=== PATIENT | female | born 1975 | race Caucasian/White ===

== ENCOUNTER 2016-10-09 07:13 | Day surgery (SDC) | payer BC, OTHER ==
[~2016-10-09] VITALS: Ht 165.1 cm; Wt 97.7 kg
[2016-10-09 07:51] VITALS: BP 136/100
[2016-10-09 09:06] LABS: METH RESISTANT S AUREUS PCR NEGATIVE (NEGATIVE)
[2016-10-09 09:10] LABS: PROBE CHECK PASS; SPECIMEN PROCESSING CONTROL PASS
[2016-10-09] MEDS ORDERED: PERCOCET 5/31 TABLET PO (10:08)
[2016-10-09 12:25] VITALS: BP 122/67
[2016-10-09 13:58] VITALS: BP 116/56
== END 2016-10-09 14:00 | disposition home or self-care (01) ==
LOC: SDC 07:13
PROVIDERS: Surgery
PROC: 06BY3ZC Excision of Hemorrhoidal Plexus, Percutaneous Approach (ICD-10-PCS; principal; 2016-10-09)
DX: K64.8 Other hemorrhoids (principal); K64.4 Residual hemorrhoidal skin tags
CPT/HCPCS: 87641; 88304; J0131; J0330; J1100; J1170; J1580; J2175; J2405; J2550; J2765; J3010; S0030

== ENCOUNTER 2016-10-12 18:58 | Observation (INO) | payer BC, OTHER ==
[~2016-10-12] VITALS: Ht 167.6 cm; Wt 90.6 kg
[~2016-10-12 18:58] MED LIST: PERCOCET 5/31 TABLET PO
[2016-10-12 19:47] LABS: BASOPHIL COUNT 0.1 K/uL (0-0.1); EOSINOPHIL (%) 3.2 % (0-5); EOSINOPHIL COUNT 0.5 K/uL (0-0.3); HEMATOCRIT 37.7 % (36.0-46.0); IMMATURE GRANULOCYTE (%) 0.5 % (0.0-0.7); IMMATURE GRANULOCYTE COUNT 0.8 K/uL; LYMPHOCYTE COUNT 2.8 K/uL (1.0-2.8); MCH 30.2 PG (29.0-34.0); MCHC 35.5 G/DL (30.0-36.0); MONOCYTE (%) 7.9 % (3-12); MONOCYTE COUNT 1.3 K/uL (0-0.8); NEUTROPHIL (%) 70.3 % (45-76); NEUTROPHIL COUNT 11.3 K/uL (1.8-6.4); PLATELET COUNT 333 K/uL (156-360); RBC DIS.WIDTH-CV 13.7 % (11.8-14.6); RBC DIS.WIDTH-SD 41.4 % (39-53); RED BLOOD COUNT 4.43 M/uL (3.80-5.20)
[2016-10-12 19:52] LABS: MCV 85.1 FL (83-99)
[2016-10-12 19:59] LABS: CHLORIDE 106 mEq/L (99-109); POTASSIUM 3.9 mEq/L (3.7-5.4); SODIUM 137 mEq/L (136-147)
[2016-10-12 20:01] LABS: GLUCOSE 102 mg/dL (70-99)
[2016-10-12 20:02] LABS: ANION GAP 12 MEQ/L (2-14)
[2016-10-12 20:03] LABS: TOTAL BILIRUBIN 0.4 mg/dL (0.0-1.0)
[2016-10-12 20:05] LABS: ALKALINE PHOSPHATASE 59 IU/L (3-129); GFR ESTIMATE (CALCULATED) > 59 mL/min/
[2016-10-12 20:06] LABS: UREA NITROGEN (BUN) 10 mg/dL (9-23)
[2016-10-12 20:15] LABS: QUANTITATIVE HCG < 4.0 MIU/ML
[2016-10-12 21:36] LABS: ADD MIUA? YES; BILIRUBIN NEGATIVE; BLOOD NEGATIVE; COLOR YELLOW ((YELLOW)); GLUCOSE (STRIP) NEGATIVE; KETONES NEGATIVE; LEUKOCYTES NEGATIVE; NITRITE NEGATIVE; PH, URINE 7.5 (5-8); PROTEIN (STRIP) NEGATIVE; SPECIFIC GRAVITY 1.014 (1.000-1.030); UROBILINOGEN 0.2 MG/DL (0.2-1.0)
[2016-10-12 21:50] LABS: BACTERIA 1+; CASTS NONE SEEN /LPF; CRYSTALS NONE SEEN; EPITHELIAL CELLS 2+; MUCUS NONE SEEN; PATHOLOGICAL CAST NONE SEEN; RED BLOOD CELLS 0-5 /HPF (0-5); SMALL ROUND CELL NONE SEEN; WHITE BLOOD CELLS 0-5 /HPF (0-5); YEAST-LIKE CELL NONE SEEN
[2016-10-12] MEDS ORDERED: TYLENOL EXTRA500 MG PO (22:25)
[2016-10-12 23:50] VITALS: BP 121/65
[2016-10-13] MEDS ORDERED: MOTRIN600 MG PO (04:27)
[2016-10-13] MEDS ORDERED: ANECREAM30 GM TP (04:27)
[2016-10-13 05:06] VITALS: BP 122/71
[2016-10-13 07:15] VITALS: BP 110/66
[2016-10-13 07:15] LABS: HEMATOCRIT 36.2 % (36.0-46.0); MCHC 34.3 G/DL (30.0-36.0); MCV 87.7 FL (83-99); MEAN PLAT.VOLUME 10.5 uM^3 (9.5-12.4); PLATELET COUNT 255 K/uL (156-360); RBC DIS.WIDTH-CV 14.1 % (11.8-14.6); RBC DIS.WIDTH-SD 44.8 % (39-53); RED BLOOD COUNT 4.13 M/uL (3.80-5.20); WHITE BLOOD COUNT 12.3 K/uL (4.1-10.2)
[2016-10-13 07:25] LABS: BASOPHIL COUNT 0.1 K/uL (0-0.1); EOSINOPHIL (%) 6.1 % (0-5); EOSINOPHIL COUNT 0.8 K/uL (0-0.3); IMMATURE GRANULOCYTE (%) 0.6 % (0.0-0.7); IMMATURE GRANULOCYTE COUNT 0.1 K/uL; LYMPHOCYTE COUNT 3.3 K/uL (1.0-2.8); MONOCYTE (%) 5.7 % (3-12); MONOCYTE COUNT 0.7 K/uL (0-0.8); NEUTROPHIL (%) 60.2 % (45-76); NEUTROPHIL COUNT 7.4 K/uL (1.8-6.4)
== END 2016-10-13 13:58 | disposition home or self-care (01) ==
LOC: EME 18:58 → 2EAST 22:19 → EDOF 22:19 → 2EAST 23:45
PROVIDERS: Physician Assistant; Surgery
DX: K91.841 Postprocedural hemorrhage of a digestive system organ or structure following other procedure (principal); K62.89 Other specified diseases of anus and rectum; Z98.890 Other specified postprocedural states; Z87.891 Personal history of nicotine dependence; R10.31 Right lower quadrant pain; R11.2 Nausea with vomiting, unspecified
CPT/HCPCS: 74177; 80053; 81003; 83605; 84702; 85025; 87040; 99281; 99285; G0378; J1170; J1885; J2405; J3010; J7120

== ENCOUNTER 2017-04-05 16:42 | Emergency (ER) | payer BC ==
[~2017-04-05] VITALS: Ht 165.1 cm; Wt 103.3 kg
[~2017-04-05 16:42] MED LIST changes: +ANECREAM30 GM TP; +MOTRIN600 MG PO; +TYLENOL EXTRA500 MG PO
[2017-04-05 17:41] LABS: HEMATOCRIT 40.1 % (36.0-46.0); MCH 30.9 PG (29.0-34.0); MCHC 35.2 G/DL (30.0-36.0); MCV 87.9 FL (83-99); MEAN PLAT.VOLUME 10.5 uM^3 (9.5-12.4); PLATELET COUNT 271 K/uL (156-360); RBC DIS.WIDTH-CV 12.3 % (11.8-14.6); RED BLOOD COUNT 4.56 M/uL (3.80-5.20); WHITE BLOOD COUNT 14.5 K/uL (4.1-10.2)
[2017-04-05 17:57] LABS: CHLORIDE 104 mEq/L (99-109); POTASSIUM 4.1 mEq/L (3.7-5.4); SODIUM 137 mEq/L (136-147)
[2017-04-05 17:59] LABS: GLUCOSE 105 mg/dL (70-99)
[2017-04-05 18:01] LABS: ANION GAP 12 MEQ/L (2-14); TOTAL BILIRUBIN 0.4 mg/dL (0.0-1.0)
[2017-04-05 18:03] LABS: ALKALINE PHOSPHATASE 63 IU/L (3-129); GFR ESTIMATE (CALCULATED) > 59 mL/min/
[2017-04-05 18:04] LABS: UREA NITROGEN (BUN) 9 mg/dL (9-23)
[2017-04-05 18:06] LABS: TROP-I INTERPRETATION NEGATIVE; TROPONIN-I < 0.01 ng/mL (0.0-0.30)
[2017-04-05] MEDS ORDERED: PERCOCET 5/31 TABLET PO (21:01)
[2017-04-05 21:20] VITALS: BP 128/84
== END 2017-04-05 21:21 | disposition home or self-care (01) ==
LOC: EME 16:42
PROVIDERS: Physician Assistant
DX: R10.9 Unspecified abdominal pain (principal); R07.9 Chest pain, unspecified; Z88.0 Allergy status to penicillin; Z86.711 Personal history of pulmonary embolism
CPT/HCPCS: 71275; 74174; 80053; 84484; 85027; 93005; 99281; 99285; J7030